=== PATIENT | male | born 1935 | race Caucasian/White ===

== ENCOUNTER 2017-09-29 09:43 | Outpatient (CLI) | payer MEDICARE, BC ==
--- NOTE | 2017-09-29 14:42 | Ultrasound Report ---
Procedure Date: 09/29/2017 Accession Number: [id number] / [id number] Procedure: US - Bladder CPT Code: FULL RESULT: EXAM: Bladder DATE: 09/29/2017 11:28 AM CLINICAL HISTORY: FREQUENCY OF MICTURITION COMPARISON: None. TECHNIQUE: Real-time scanning was performed with static images obtained. FINDINGS: Bladder: The initial bladder volume was 149 mL. A 1.1 mL postvoid residual bladder volume is noted. Bilateral ureteral jets documented. Normal wall thickness. No masses evident. Other: Prostate 3.6 x 3 x 2.8 cm, volume 16 cc. ]] IMPRESSION: No significant bladder postvoid residual. [facility]
== END 2017-09-29 09:44 | disposition home or self-care (01) ==
LOC: DI 09:43
PROVIDERS: ATTEND Internal Medicine
DX: R35.0 Frequency of micturition (principal)
CPT/HCPCS: 76857